=== PATIENT | female | born 1935 | race Caucasian/White ===

== ENCOUNTER 2017-03-02 18:17 | Inpatient (IN) | payer OTHER ==
[~2017-03-02] VITALS: Ht 157.5 cm; Wt 56.2 kg
[~2017-03-02 18:17] MED LIST: ATENOLOL25 PO; FLUOXETINE10 MG PO; HYDRO PAR25 MG PO; LOVASTATIN40 M1 PO; TRAMADOL50 MG PO
[2017-03-02 21:03] LABS: CALCIUM 8.8 mg/dL (8.5-10.1); CARBON DIOXIDE 25.5 mmol/L (21-32); CHLORIDE SERUM 104 mmol/L (98-107); CREATININE SERUM 1.5 mg/dL (0.6-1.0); GLUCOSE SERUM 104 mg/dL (74-106); POTASSIUM SERUM 3.5 mmol/L (3.5-5.1); SODIUM SERUM 137 mmol/L (136-145)
[2017-03-02 21:08] LABS: ALBUMIN 3.6 g/dL (3.4-5.0); ALKALINE PHOSPHATASE 97 U/L (46-116); ALT/SGPT 53 U/L (14-59); AST/SGOT 30 U/L (15-37); BASOPHIL % 0.3 % (0-2); BILIRUBIN TOTAL 0.62 mg/dL (0.20-1.00); PLATELET COUNT 204 x10^3mcL (130-400); RED CELL DISTRIBUTION WIDTH 14.1 % (11.5-14.5); TOTAL PROTEIN, SERUM 7.5 g/dL (6.4-8.2)
[2017-03-02 22:45] VITALS: BP 136/63
[2017-03-03 00:11] LABS: T3 TOTAL 1.06 ng/mL
[2017-03-03 00:25] LABS: AMYLASE 33 U/L (25-115); LIPASE 104 IU/L (73-393); PHOSPHOROUS 3.7 mg/dL (2.5-4.9)
[2017-03-03 00:26] LABS: CHOLESTEROL 221 mg/dL (<200); CHOLESTEROL/HDL RATIO 7.1; HDL CHOLESTEROL 31 mg/dL (40-60); TRIGLYCERIDES 462 mg/dL (<150)
[2017-03-03 00:36] LABS: FREE T4 0.8 ng/dL (0.76-1.46); FREE THYROXINE INDEX 2.1 ug/dL (1.4-4.5); T4(THYROXINE) 6.3 ug/dL (4.7-13.3)
[2017-03-03] MEDS ORDERED: LEVOTHYROXIN0.025 M2 PO (02:34)
[2017-03-03] MEDS ORDERED: LOVASTATIN40 MG PO (02:36)
[2017-03-03] MEDS ORDERED: TEN25 PO (04:53)
[2017-03-03] MEDS ORDERED: PROZ10 PO (04:54)
[2017-03-03] MEDS ORDERED: HYDROCHLOROTHIA25 MG PO (04:58)
[2017-03-03] MEDS ORDERED: TRAMADOL HCL50 MG PO (05:00)
[2017-03-03 05:31] VITALS: BP 124/57
[2017-03-03 07:29] LABS: BASOPHIL % 0.4 % (0-2); PLATELET COUNT 182 x10^3mcL (130-400); RED CELL DISTRIBUTION WIDTH 14.1 % (11.5-14.5)
[2017-03-03 07:37] LABS: microscopic required? YES; urine erythrocyte TRACE (NEGATIVE)
[2017-03-03 07:46] LABS: CALCIUM 8.4 mg/dL (8.5-10.1); CARBON DIOXIDE 26.3 mmol/L (21-32); CHLORIDE SERUM 104 mmol/L (98-107); GLUCOSE SERUM 84 mg/dL (74-106); POTASSIUM SERUM 3.7 mmol/L (3.5-5.1); SODIUM SERUM 141 mmol/L (136-145)
[2017-03-03 07:55] LABS: AMPHETAMINE QUAL UR NONE DETECTED (NEG <=1000)
[2017-03-03 10:08] VITALS: BP 123/43
[2017-03-03 13:51] VITALS: BP 120/79
[2017-03-03 17:46] VITALS: BP 108/45
[2017-03-03 21:19] VITALS: BP 108/43
[2017-03-04 05:45] VITALS: BP 132/56
[2017-03-04 10:03] VITALS: BP 124/47
[2017-03-04] MEDS ORDERED: CIPRO500 MG PO (11:49)
[2017-03-04 12:00] VITALS: BP 124/47
[2017-03-04] MEDS ORDERED: LAC PO (16:34)
== END 2017-03-04 17:15 | disposition home or self-care (01) | DRG 205 ==
LOC: ED 18:17 → DU 21:52
PROVIDERS: Emergency Medicine; ADMIT Family Medicine
DX: M94.0 Chondrocostal junction syndrome [Tietze] (principal); N17.0 Acute kidney failure with tubular necrosis; N39.0 Urinary tract infection, site not specified; B96.20 Unspecified Escherichia coli [E. coli] as the cause of diseases classified elsewhere; I11.9 Hypertensive heart disease without heart failure; R31.9 Hematuria, unspecified; D64.9 Anemia, unspecified; E03.9 Hypothyroidism, unspecified; E78.2 Mixed hyperlipidemia; F32.9 Major depressive disorder, single episode, unspecified; Z16.24 Resistance to multiple antibiotics
CPT/HCPCS: 83880; 84439; C9113; J0696; J7030; Q0092

== ENCOUNTER 2018-11-09 11:53 | Emergency (ER) | payer OTHER ==
[~2018-11-09] VITALS: Ht 162.6 cm; Wt 62.8 kg
[~2018-11-09 11:53] MED LIST changes: +CIPRO500 MG PO; +HYDROCHLOROTHIA25 MG PO; +LAC PO; +LEVOTHYROXIN0.025 M2 PO; +LOVASTATIN40 MG PO; +PROZ10 PO; +TEN25 PO; +TRAMADOL HCL50 MG PO
[2018-11-09 15:48] VITALS: BP 138/63
== END 2018-11-09 15:48 | disposition home or self-care (01) ==
LOC: ED 11:53
DX: M25.50 Pain in unspecified joint (principal); I10 Essential (primary) hypertension; E78.00 Pure hypercholesterolemia, unspecified; F32.9 Major depressive disorder, single episode, unspecified
CPT/HCPCS: J1885; J7512